=== PATIENT | female | born 1955 | race Caucasian/White ===

== ENCOUNTER → 2021-11-29 | Outpatient (CLI) | payer MEDICARE, OTHER ==
--- NOTE | 2021-11-30 08:43 | RAD ---
EXAM: Pelvis and left hip, 3 views. HISTORY: Fall. Pain. COMPARISON: None. FINDINGS: A frontal view of the pelvis and 2 views of the left hip are obtained. There is no fracture , dislocation or subluxation. The femoral heads are normal in configuration. The sacroiliac joints ar e intact. There is calcification within the right hemipelvis possibly due to a calcified uterine fibr oid. IMPRESSION: No acute osseous finding. Electronically signed by: Anca Cruz MD (11/30/2021 8:40 AM) [id number]
== END ==
LOC: RAD 17:41
PROVIDERS: ATTEND Family Medicine
DX: R10.2 Pelvic and perineal pain (principal); M79.652 Pain in left thigh; W19.XXXA Unspecified fall, initial encounter
CPT/HCPCS: 73502